=== PATIENT | female | born 1975 | race Caucasian/White ===

== ENCOUNTER 2023-05-15 18:58 | Emergency (ER) | payer OTHER, SELFPAY ==
[2023-05-15 19:01] VITALS: BP 206/118
[2023-05-15 19:22] LABS: % Basophils 0.9 % (0-2); % Eosinophils 2.7 % (0-6); % Immature Granulocytes 0.3 % (0-0.5); % Lymphocytes 26.5 % (20.5-51.1); % Monocytes 6.7 % (1.7-9.3); % Neutrophils 62.9 % (42.2-75.2); Absolute Basophils 0.1 10^3/uL (0-0.2); Absolute Eosinophils 0.2 10^3/uL (0-0.7); Absolute Lymphocytes 2.1 10^3/uL (1.2-3.4); Absolute Monocytes 0.5 10^3/uL (0.1-0.6); Mean Corpuscular Hgb 28.9 pg (27.0-31.0); Mean Corpuscular Volume 82.6 fL (81.0-99.0); Nucleated Red Blood Cells % 0 %; Platelet Count 279 10^3/uL (130-400); Red Blood Cell Count 4.84 10^6/uL (4.20-5.40); Red Cell Dist. Width 12.2 % (11.5-14.5); White Blood Cell Count 7.9 10^3/uL (4.8-10.8)
[2023-05-15 19:32] LABS: HCG, Serum Qualitative Screen Negative
[2023-05-15 19:35] LABS: ALT (SGPT) 31 U/L (0-35); AST (SGOT) 26 U/L (14-36); Albumin 4.4 g/dl (3.5-5.0); Alkaline Phosphatase 91 U/L (38-126); Blood Urea Nitrogen 14 mg/dl (7-17); Carbon Dioxide 28 mmol/L (22-30); Chloride 105 mmol/L (98-107); Glucose 112 mg/dl (70-99); Potassium 3.8 mmol/L (3.5-5.1); Sodium 137 mmol/L (135-145); Total Bilirubin 0.5 mg/dl (0.2-1.3); Total Protein 7.2 g/dl (6.3-8.2); eGFR > 60.00
[2023-05-15 19:46] LABS: Troponin I < 0.012 ng/ml
[2023-05-15 20:14] LABS: TSH 1.89 uIU/ml (0.47-4.68)
[2023-05-15 20:50] VITALS: BP 147/100
[2023-05-15 20:56] VITALS: BP 151/105
[2023-05-15 21:00] VITALS: BP 140/104
--- NOTE | 2023-05-15 21:14 | ED.GENMED ---
History of Present Illness
General
Chief Complaint: Dizziness
Source: patient
Time Seen by Provider: 05/15/23 20:37
Travel History
Have you had any contact with someone who has COVID-19?: No
Do you have any symptoms of coronavirus? Fever > 100 degrees, chills, cough, shortness of breath, sore throat, loss of taste or smell, muscle aches, or headache?: No
History of Present Illness
History of Present Illness:
47-year-old female presents to the emergency room complaining of headache, neck pain. Patient began having the symptoms this morning. Patient notes that she had a syncopal episode 3 days ago. The day prior to the syncopal episode she was having
nausea vomiting diarrhea. She went to an urgent care after the syncopal episode and they told her was likely due to dehydration. Since that she has been tolerating oral intake. She was feeling better until today when his headache fell. She
denies any chest pain or shortness of breath. She went to urgent care again today and they noted her blood pressure bit high and told her her EKG looked questionable and so she should come to the emergency room for evaluation. She has not been
tested for any viral illnesses such as COVID or flu.
Phy Exam
Physical Exam
Physical Exam:
General: Awake, Alert, Oriented X3. No acute distress.
Vitals: unremarkable
Head: Atraumatic
Eyes: Pupils equal, EOMI
Throat: Airway intact, no exudates
Neck: Trachea midline
Lungs: Clear and equal b/l
Heart: Regular rate, no murmurs
Abd: Soft, Nontender, No pulsatile mass
Neuro: Nonfocal
Skin: Warm, dry, no rash
Extremities: pulses equal b/l, no edema
Course
Orders/Labs/Results
Orders:
Orders
05/15/23 19:05
Electrocardiogram (*1) Urgent
Reason for Study: Other
Other Reason for Exam: JAW PAIN
05/15/23 19:06
EKG- Treatment ONCE
Test Result ONCE
05/15/23 19:14
Complete Blood Count/With Diff Urgent
05/15/23 19:15
CMP [Comprehensive Metabolic Panel] Urgent
HCG, Serum Qualitative Screen Urgent
TSH Urgent
Troponin I Urgent
05/15/23 21:12
COVID-19 Antigen Urgent
Source: Nasal Swab
Influenza A+B Rapid Molecular Urgent
JENNIFER Source: Nasal Swab
Specimen Description:
05/15/23 21:13
0.9% Sodium Chloride 1000 ml [Nss] 1,000 ml IV BOLUS
Ketorolac [Toradol] 15 mg IV NOW STA
Abnormal Lab Results
05/15/23
19:15
Glucose 112 H mg/dl
(70-99)
05/15/23 19:14
05/15/23 19:15
Vital Signs
Initial and Last Documented VS:
Initial Vital Signs
Temp Pulse Resp BP Pulse Ox
99.4 F 90 18 206/118 100
05/15/23 19:01 05/15/23 19:01 05/15/23 19:01 05/15/23 19:01 05/15/23 19:01
Last Documented Vital Signs
Temp Pulse Resp BP Pulse Ox
99.4 F 66 11 147/91 96
05/15/23 19:01 05/15/23 22:31 05/15/23 22:31 05/15/23 22:31 05/15/23 22:31
MDM/Problems Addressed
Differential Diagnosis Includes:
Dehydration, electrolyte abnormality, COVID, flu
MDM/Problems Addressed:
Patient told to come to the emergency room by urgent care for some question about a abnormal EKG. Patient had gone there with headache, jaw pain. She presents the EKG from the urgent care which appears normal to me. EKG here shows no acute
ischemic changes. Labs including troponin are normal. COVID and flu test are negative. Patient did have a significant elevated blood pressure contraction when she first arrived but several repeat measurements show mild hypertension. Patient
treated with IV fluids and Toradol with improvement of her symptoms. Suspect either headache from hypertension or other viral illness with. Patient stable for discharge home and follow-up with her primary care provider
*Pulse Oximetry
Patient hypoxic: no
*EKG
Interpreted by ED Provider?: Yes
Interpretation: normal
Rate: normal
Rhythm: sinus
[place]: normal axis
Interval: normal interval
QRS Pattern: normal QRS
Ischemia: no ischemia
*Press Leader Interpretation
Rate: normal
Interpretation: normal
Rhythm: sinus
*Critical Care Note
Total Time (30-74mins, 75-104mins- exclusive of procedures): Not Applicable
ED Attending Note
-
Portions of this chart may have been created with voice recognition software.� Occasional wrong word or��sound alike� substitutions may have occurred due to the inherent limitations of voice recognition software.
Discharge Plan
Departure
Patient Disposition: Home (Routine Discharge)
Date of Disposition: 05/15/23
Time of Disposition: 22:41
Patient with high blood pressure during this ER visit?: Yes
Condition: Good
Discharge Problem:
Headache
Instructions: Headache, Adult, BLOOD PRESSURE
Activity Restrictions/Additional Instructions:
Please follow up with your primary care provider for blood pressure recheck. Return if you feel worsening symptoms or any concerns.
Interventions
Interventions:
*Risk Screen - Suicide Last Done: 05/15/23 19:01
*General Assessment Last Done: 05/15/23 20:51
*Neglect/Abuse Screening Last Done: 05/15/23 19:01
ED- Fall Risk Assessment Last Done: 05/15/23 20:51
*ED COVID-19 Vaccine History Last Done: 05/15/23 20:51
*Nursing Disposition Last Done: 05/15/23 22:52
ED- Pulmonary Assessment Last Done: 05/15/23 20:51
ED- Neurological Assessment Last Done: 05/15/23 20:51
ED- Cardiac Assessment Last Done: 05/15/23 20:51
ED Swallowing Screen Last Done: 05/15/23 20:58
Discharge Date and Time
Discharge Date/Time: 05/15/23 22:59
[2023-05-15] MEDS: TORADOL 15 MG IV (21:21)
[2023-05-15] MEDS: NSS 1000 IV (21:21)
[2023-05-15 21:39] LABS: COVID-19 Antigen Negative (Negative)
[2023-05-15 22:00] VITALS: BP 147/92
[2023-05-15 22:31] VITALS: BP 147/91
== END 2023-05-15 22:59 | disposition home or self-care (01) ==
LOC: EMR 18:58
PROVIDERS: Emergency Medicine; EMERGENCY PHYSICIAN Emergency Medicine; FAMILY PHYSICIAN Family Medicine
DX: R51.9 Headache, unspecified (principal); M54.2 Cervicalgia; I10 Essential (primary) hypertension
CPT/HCPCS: 99283; 96374; 96361; 80053; 84443; 84484; 84703; 85025; 87502; 87811; 93005

== ENCOUNTER 2023-05-20 18:19 | Emergency (ER) | payer OTHER, SELFPAY ==
[2023-05-20 18:28] VITALS: BP 161/87
[2023-05-20 18:45] LABS: % Basophils 0.8 % (0-2); % Eosinophils 2.2 % (0-6); % Immature Granulocytes 0.2 % (0-0.5); % Lymphocytes 22.8 % (20.5-51.1); Absolute Basophils 0.1 10^3/uL (0-0.2); Absolute Eosinophils 0.2 10^3/uL (0-0.7); Absolute Lymphocytes 2.1 10^3/uL (1.2-3.4); Absolute Monocytes 0.5 10^3/uL (0.1-0.6); Absolute Neutrophils 6.2 10^3/uL (1.4-6.5); Hematocrit 42.1 % (37.0-47.0); Hemoglobin 14.9 g/dL (12.0-16.0); Mean Corp Hgb Conc. 35.4 g/dL (33.0-37.0); Mean Corpuscular Hgb 29.3 pg (27.0-31.0); Mean Corpuscular Volume 82.7 fL (81.0-99.0); Mean Platelet Volume 9.8 fL (7.4-10.4); Nucleated Red Blood Cells % 0 %; Platelet Count 291 10^3/uL (130-400); Red Blood Cell Count 5.09 10^6/uL (4.20-5.40); White Blood Cell Count 9.1 10^3/uL (4.8-10.8)
[2023-05-20 18:56] LABS: HCG, Serum Qualitative Screen Negative
[2023-05-20 18:58] LABS: ALT (SGPT) 36 U/L (0-35); AST (SGOT) 30 U/L (14-36); Albumin 4.7 g/dl (3.5-5.0); Alkaline Phosphatase 96 U/L (38-126); Blood Urea Nitrogen 15 mg/dl (7-17); Calcium 9.4 mg/dl (8.4-10.2); Carbon Dioxide 28 mmol/L (22-30); Chloride 102 mmol/L (98-107); Glucose 147 mg/dl (70-99); Potassium 3.9 mmol/L (3.5-5.1); Sodium 136 mmol/L (135-145); Total Bilirubin 0.7 mg/dl (0.2-1.3); Total Protein 7.5 g/dl (6.3-8.2); eGFR 55.84
[2023-05-20 19:11] LABS: Troponin I < 0.012 ng/ml
[2023-05-20 20:27] VITALS: BP 131/70
--- NOTE | 2023-05-20 20:44 | ED.GENMED ---
History of Present Illness
General
Chief Complaint: Chest Pain
Time Seen by Provider: 05/20/23 20:19
Travel History
Have you had any contact with someone who has COVID-19?: No
Do you have any symptoms of coronavirus? Fever > 100 degrees, chills, cough, shortness of breath, sore throat, loss of taste or smell, muscle aches, or headache?: No
History of Present Illness
History of Present Illness:
HPI: Patient presents due to palpitations and chest discomfort. This started around 5 PM tonight (of note the initial troponin drawn at 6:30 PM). Currently the chest discomfort and palpitations have resolved. Overall she is improved but she was
concerned because she also had a syncopal event earlier in the week. She was recently placed on valsartan and also states that Zoloft was increased from 50 mg to 75 mg.
EXAM:
GENERAL: Well appearing in no distress
HEENT: Moist oral mucosa
CARDIOVASCULAR: No murmurs, normal heart rate and rhythm, No chest wall tenderness
PULMONARY: No respiratory distress, breath sounds are clear and equal
ABDOMEN: Soft with no peritoneal signs, no tenderness
NEUROLOGIC: Excellent strength all extremities, no coordination deficits
PSYCHIATRIC: Appropriate mental status, normal insight and judgement
EXTREMITIES: Nontender, no edema, moves all extremities equally
SKIN: No rash, no lesions
ED COURSE:
8 PM: I initially evaluated patient
NUMBER AND COMPLEXITY OF PROBLEMS ADDRESSED AT THE ENCOUNTER
� Chronic conditions affecting care: High blood pressure
� Acute Exacerbation and/or Progression of Chronic Illness: This is an acute problem
� Differential Diagnosis includes: Hypertensive urgency, ACS, thyroid disease, electrolyte abnormality
AMOUNT AND/OR COMPLEXITY OF DATA TO BE REVIEWED AND ANALYZED
� I performed an independent evaluation of and my interpretation is:
EKG: Sinus 95, normal axis, no acute ST abnormality
CT:
X-rays:
Laboratory Studies: Troponin negative x 2, TSH normal, hCG negative, mild renal sufficiency noted, CBC normal
Other:
� Review of other/old records: The patient was here 5 days ago after headache and neck pain the day after syncope, labs from 5 days ago are unremarkable
� Clinical information was obtained by an independent historian: I spoke to the at bedside
� Prescriptions/Medications Considered but not given:
� Further testing considered but not performed:
RISK OF COMPLICATIONS AND/OR MORBIDITY OR MORTALITY OF PATIENT MANAGEMENT
� Social determinants of health affecting care: Lives at home
� Discussion with other providers:
� Escalation of care including admission/observation vs risk of discharge considered: The patient had 2 negative troponins. Symptoms have resolved. She remained sinus on the monitor. She did recently increase her Zoloft from
50 mg to 75 question of this is a contributing factor. She has been on valsartan but I do not think this is a contributing factor. I did arrange for close outpatient follow-up with cardiology. She is very comfortable in appearance at time of
discharge
Phy Exam
Physical Exam
Physical Exam:
See HPI
Scores
Heart Score for Chest Pain Patients
STEMI patient?: Not applicable
Course
Orders/Labs/Results
Orders:
Orders
05/20/23 18:21
EKG [Electrocardiogram (*1)] Urgent
Reason for Study: Chest Pain
EKG- Treatment ONCE
05/20/23 18:32
Test Result ONCE
05/20/23 18:35
Complete Blood Count/With Diff Urgent
Comprehensive Metabolic Panel Urgent
HCG, Serum Qualitative Screen Urgent
TSH Reflex To Free T4 Urgent
Comment: ADD ON
Troponin I Urgent
05/20/23 21:10
Add On- LAB Urgent
Tests Added?: tsh reflex fT4
05/20/23 21:39
Troponin I Urgent
Abnormal Lab Results
05/20/23
18:35
Creatinine 1.2 H mg/dL
(0.6-1.0)
Glucose 147 H mg/dl
(70-99)
ALT 36 H U/L
(0-35)
05/20/23 18:35
05/20/23 18:35
Vital Signs
Initial and Last Documented VS:
Initial Vital Signs
Temp Pulse Resp BP Pulse Ox
98.2 F 118 16 161/87 99
05/20/23 18:28 05/20/23 18:28 05/20/23 18:28 05/20/23 18:28 05/20/23 18:28
Last Documented Vital Signs
Temp Pulse Resp BP Pulse Ox
98.2 F 91 17 142/80 93
05/20/23 18:28 05/20/23 22:15 05/20/23 22:15 05/20/23 22:00 05/20/23 22:15
*Critical Care Note
Total Time (30-74mins, 75-104mins- exclusive of procedures): Not Applicable
ED Attending Note
-
Portions of this chart may have been created with voice recognition software.� Occasional wrong word or��sound alike� substitutions may have occurred due to the inherent limitations of voice recognition software.
Discharge Plan
Departure
Patient Disposition: Home (Routine Discharge)
Date of Disposition: 05/20/23
Time of Disposition: 22:49
Patient with high blood pressure during this ER visit?: Yes
Discharge Problem:
Palpitations
Instructions: Palpitations (DC), Chest Pain DCA Follow Up
Prescriptions:
No Action
valsartan 80 mg Tablet
80 mg PO DAILY
sertraline 50 mg Tablet
75 mg PO NOON
omeprazole 20 mg Tablet,Delayed Release (Dr/Ec)
20 mg PO DAILY
Referrals:
Ramana Cuellar MD [Active] - Follow up in 2-3 days
Matti Abbott DO [Family Provider] -
Activity Restrictions/Additional Instructions:
I have given you the information for a local manager medicare to follow-up with. Their office should be contacting you but if you do not hear for them, then I recommend that you call them. The cause of your symptoms is unclear. Basic blood work is
normal (with exception of very minimal kidney function abnormality). Cardiac blood work was checked twice and both times were negative. Thyroid testing was also normal.
Interventions
Interventions:
ED- Cardiac Assessment Last Done: 05/20/23 20:47
[2023-05-20 21:00] VITALS: BP 144/88
[2023-05-20 22:00] VITALS: BP 142/80
[2023-05-20 22:14] LABS: Troponin I < 0.012 ng/ml
[2023-05-20 22:27] LABS: TSH Reflex To Free T4 1.38 uIU/ml (0.47-4.68)
[2023-05-20 23:00] VITALS: BP 128/89
== END 2023-05-20 23:05 | disposition home or self-care (01) ==
LOC: EMR 18:19
PROVIDERS: Emergency Medicine; EMERGENCY PHYSICIAN Emergency Medicine; FAMILY PHYSICIAN Family Medicine
DX: R00.2 Palpitations (principal); R07.89 Other chest pain; R03.0 Elevated blood-pressure reading, without diagnosis of hypertension; Z88.1 Allergy status to other antibiotic agents
CPT/HCPCS: 99283; 80053; 84443; 84484; 84703; 85025; 93005

== ENCOUNTER → 2023-06-30 11:09 | Outpatient (REF) | payer OTHER, SELFPAY | LOC: DHCBS HW 11:09 | PROVIDERS: ATTENDING PHYSICIAN Internal Medicine Cardiovascular Disease; FAMILY PHYSICIAN Family Medicine | DX: R00.2 Palpitations (principal) | CPT/HCPCS: 93306 ==